=== PATIENT | male | born 1965 | race Caucasian/White ===

== ENCOUNTER 2017-04-14 06:03 | Inpatient (IN) | payer MEDICARE, OTHER ==
--- NOTE | ~2017-04-14 | DS ---
Discharge Summary [facility] [address] [place]. [address] NAME: VASQUEZ VASQUEZ : 65 STATUS : DIS Lou PAT#: [id number] AGE: 51 ADM/REG DATE : 04/14/17 MR#: [id number] REPORT SERV DATE: 04/21/17 DICTATED BY: DATE: REPORT STATUS : Draft TRANSCRIBED BY: MODL DATE: 04/16/17 ADMISSION DATE: 04/14/2017 DISCHARGE DATE: 04/16/2017 CONDITION AT DISCHARGE: Stable. PLANS FOR DISCHARGE: To home. DISCHARGE DIAGNOSES: 1. End-stage renal disease. 2. Noncompliance. 3. Hyperkalemia. 4. Hypertension. 5. Hyperlipidemia. 6. Chronic myoclonus. 7. Volume overload due to noncompliance. MEDICATIONS ON DISCHARGE: Amlodipine 10 mg daily, Sensipar 30 mg p.o. at bedtime, Flexeril 30 mg p.o. at bedtime, Colace 100 mg p.o. at bedtime, Lasix 40 mg p.o. at bedtime, Lyrica 75 mg p.o. b.i.d., Senokot two tablets p.o. at bedtime, sodium bicarb 1300 mg daily, Flomax 0.4 mg p.o. at bedtime, OxyContin 40 mg sustained release p.o. b.i.d., Percocet 10/325 p.o. q.4 h. p.r.n. for pain, ferric citrate 630 mg p.o. at bedtime. HOSPITAL COURSE: This patient presented to [facility] on 04/14/2017 with complaint of shortness of breath and notable hyperkalemia with potassium of 6.6. He stated that he was "just lazy" and did not attend his dialysis schedule. He normally dialyzes on a Friday, Friday, Friday at [facility] via left upper extremity AV fistula and had not been to dialysis per his usual schedule. There was noted previously a large pericardial effusion on 11/2016. He was admitted in favor of emergent dialysis due to his hyperkalemia, shortness of breath, and further evaluation with cardiac echo for evaluation of his previous effusion. Echo was undertaken on 04/15/2017, demonstrating systolic function and reduction at 38% compared to 40%-45%, 11/2016, unchanged concentric left ventricular hypertrophy, moderate circumferential pericardial effusion, unchanged from 01/17/2017 and 12/09/2016, and right ventricular systolic function mildly reduced. No available pulmonary pressures on report, which is reviewed during this summary. The patient is evaluated this morning prior to dialysis and is agreeable to exit to home after hemodialysis today. He has been dialyzed on entry date as well as 04/15/2017 with UF on 04/14 at 6.31, gross UF on 04/15 at 5.3, with additional UF to be undertaken today of 3-4 kilos. The patient will be discharged post hemodialysis today if he remains stable throughout dialysis treatment. He will resume medications as listed above and resume his usual Friday, Friday, Friday hemodialysis schedule at his previous clinic. No consultations were undertaken during this hospital stay. The patient has been advised of instructions on discharge and will be re-advised of those instructions as well as his home medication list on dismissal today. DICTATED BY: Vasquez Botello NP Discharge Summary [address] [address] NAME: VASQUEZ VASQUEZ : 65 STATUS : DIS Lou PAT#: [id number] AGE: 51 ADM/REG DATE : 04/14/17 MR#: [id number] REPORT SERV DATE: 04/21/17 DICTATED BY: DATE: REPORT STATUS : Draft TRANSCRIBED BY: CÉSAR DATE: 04/16/17 /CÉSAR Vasquez Botello NP / [id number] CC: Sherri Figueredo M.D.
--- NOTE | ~2017-04-14 | HP ---
History And Physical [facility] [address] [facility] [place]. [address] NAME: VASQUEZ FOSTER : 65 STATUS : ADM Lou PAT#: [id number] AGE: 51 ADM/REG DATE : 04/14/17 MR#: [id number] REPORT SERV DATE: 04/14/17 DICTATED BY: SCOTT GREER DATE: 04/14/17 REPORT STATUS : Draft TRANSCRIBED BY: MODL DATE: 04/14/17 DATE OF ADMISSION: 04/14/2017 INDICATION FOR ADMISSION: Volume overload, hyperkalemia, noncompliance with dialysis. HISTORY OF PRESENT ILLNESS: Mr. Foster is a 51-year-old male, who dialyzes Friday, Friday, Friday at [facility] by left AV fistula. He presented to the emergency room short of breath and was noted to have a potassium of 6.6. He missed his dialysis treatment on Friday, 04/11, stating that "I was just lazy." He denied any fever, chills, cough, or chest pain. He has noted some worsening of his myoclonus, which has been previously evaluated by Neurology. PAST MEDICAL HISTORY: 1. End-stage renal disease. Dialyzing Friday, Friday, Friday at [facility] by left upper extremity AV fistula. Noncompliance with dialysis. 2. Large pericardial effusion, 11/2016, with no intervention. 3. 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 4. Cervical myelomalacia involving C5-C6. 5. Type 2 diabetes mellitus. 6. Hypertension. 7. Hyperlipidemia. 8. Remote left renal angiomyolipoma, status post embolization. 9. Venous stasis disease of lower extremities. 10.Remote rhabdo. 11.History of obstructive uropathy. 12.Chronic myoclonus. PAST SURGICAL HISTORY: Left knee surgery, partial right foot amputation, appendectomy. FAMILY HISTORY: Positive for diabetes, hypertension, heart disease, and stroke. No history of cancer or end-stage renal disease. SOCIAL HISTORY: The patient is . Lives with son. Uses smokeless tobacco. No ongoing tobacco use. No alcohol use or illicit drugs. He works on machinery. MEDICATIONS: Norvasc, Coreg, Flexeril, Auryxia, Habitrol, Percocet, Lyrica, Senokot, Flomax. ALLERGIES: NONE KNOWN. REVIEW OF SYSTEMS: HEENT: No change in visual acuity. No epistaxis. No otic infection. No pharyngitis. PULMONARY: No shortness of breath. No cough or hemoptysis. CARDIAC: No chest pain. Has noted lower extremity edema. GI: No nausea, vomiting, or melena. : No gross hematuria or dysuria. Voids minimally. MUSCULOSKELETAL: Pain in back and knees. History And Physical [address] [place]. [address] NAME: VASQUEZ FOSTER : 65 STATUS : ADM Lou PAT#: [id number] AGE: 51 ADM/REG DATE : 04/14/17 MR#: [id number] REPORT SERV DATE: 04/14/17 DICTATED BY: SCOTT GREER DATE: 04/14/17 REPORT STATUS : Draft TRANSCRIBED BY: CÉSAR DATE: 04/14/17 INTEGUMENT: No rash. No itching. NEUROLOGIC: Chronic myoclonus. No seizure activity. No lateralizing weakness. PHYSICAL EXAMINATION: GENERAL: Morbidly obese white male, alert and cooperative. VITAL SIGNS: Blood pressure 145/86, temp 98.5, respiratory rate 20, pulse 91. HEENT: Eyes, no scleral icterus. Pupils equal and reactive to light. Extraocular movement intact. Nares patent, no discharge. Throat, no injection. Mucous membranes moist. NECK: No thyromegaly, masses, or bruits. CHEST/LUNGS: Late crackles laterally. Few scattered wheezes. CARDIAC: Regular rate and rhythm. No murmur, gallop, or rub. ABDOMEN: Obese. Normoactive bowel sounds. No organomegaly, tenderness, or rebound. /RECTAL: Not performed. EXTREMITIES: 1 to 2+ edema. No calf tenderness. DERMIS: No rash. No skin lesions. NEUROLOGIC: The patient with myoclonus. Cranial nerves appear intact. No lateralizing weakness. IMPRESSION: 1. End-stage renal disease, dialyzing Friday, Friday, Friday at [facility] by left upper extremity AV fistula. 2. Hyperkalemia, volume overload due to noncompliance with dialysis. 3. Pericardial effusion in 11/2016, we will monitor. 4. 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 5. Cervical myelomalacia involving C5-C6. 6. Type 2 diabetes mellitus. 7. Hypertension. 8. Dyslipidemia. 9. Remote left renal angiomyolipoma, status post embolization. 10.Lower extremity venous stasis disease. 11.Myoclonus. PLAN: 1. Urgent dialysis with UF. 2. Likely repeat dialysis on 04/15. 3. Repeat echo. 4. Assess oxygenation. CG/MODL Scott Greer M.D. / [id number] History And Physical [address] [address] NAME: VASQUEZ FOSTER : 65 STATUS : ADM Lou PAT#: [id number] AGE: 51 ADM/REG DATE : 04/14/17 MR#: [id number] REPORT SERV DATE: 04/14/17 DICTATED BY: SCOTT GREER DATE: 04/14/17 REPORT STATUS : Draft TRANSCRIBED BY: CÉSAR DATE: 04/14/17 CC: Sherri Figueredo M.D.
[2017-04-14 06:02] LABS: BASOPHILS 0.2 %; BASOPHILS ABSOLUTE 0.03 10/3/uL (0.0-0.16); EOSINOPHILS 0 %; IMMATURE GRANULOCYTES 0.4 %; IMMATURE GRANULOCYTES ABSOLUTE 0.05 10/3/uL (0.0-0.11); LYMPHOCYTES 8.1 %; LYMPHOCYTES ABSOLUTE 1.07 10/3/uL (0.67-4.30); MEAN CORPUSCULAR HEMOGLOB 28.4 pg (26.0-34.0); MEAN PLATELET VOLUME 10.9 fL (9.2-13.0); MONOCYTES ABSOLUTE 0.92 10/3/uL (0.21-1.20); NEUTROPHILS 84.3 %; NEUTROPHILS ABSOLUTE 11.06 10/3/uL (2.02-8.40); PLATELET COUNT 209 10/3/uL (150-400); RBC DISTRIBUTION WIDTH 13.9 % (12.0-16.0)
[~2017-04-14 06:03] MED LIST: APRES50 PO; AURYXIA210 MG PO; CELEXA20 PO; COREG3 PO; DSS PO; EFFEX75 PO; FLEX PO; FLOMAX4 PO; GLUCPH PO; HABIT14 TOP; HYDROCHLOROT12.5 MG PO; KLOR-CON M1010 MEQ PO; KLOR-CON M2020 MEQ PO; LISINOPRIL40 MG PO; LOFIB160 PO; LOPRESS HC100 MG/25 PO; LYRICA PO; LYRICA150 MG PO; LYRICA75 PO; NORV10 PO; NORV5 PO; OXYCON40 PO; PERCOCET 10/3251 TAB PO; PERCOCET1 TA2 PO; POTASSIUM PO; PRAVACHOL40 MG PO; ROXICODONE15 MG PO; SENTAB PO; SOMATAB PO; WELLXL150 PO; [UNRECOGNIZED DRUG - OTHER] OR
[2017-04-14 06:05] LABS: ER CBC TAT 0 Hrs 07 Mins; HEMATOCRIT 27.3 % (40.0-51.0); MANUAL DIFF NO %; MEAN CORPUSCULAR VOLUME 86.1 fL (80-100); RED CELL COUNT 3.17 10/6/uL (4.7-6.1); WHITE BLOOD CELLS 13.1 10/3/uL (4.5-10.5)
[2017-04-14 06:17] LABS: CHLORIDE, SERUM 97 MMOL/L (96-112); CO2 (CARBON DIOXIDE) 21 MMOL/L (24-34); GLUCOSE, SERUM 118 MG/DL (60-99); SODIUM, SERUM 132 MMOL/L (135-148)
[2017-04-14 06:20] LABS: BUN (BLOOD UREA NITROGEN) 117 MG/DL (6-23); CALCIUM, SERUM 7.8 MG/DL (8.5-10.4); GFR AFRICAN AMERICAN 4 ML/MIN (>=60); GFR NON AFRICAN AMERICAN 4 ML/MIN (>=60); POTASSIUM, SERUM 6.6 MMOL/L (3.5-5.3)
[2017-04-14 08:44] LABS: ALLENS TEST Pos; BE (BASE EXCESS) -3.6 MEQ/L (0 +/- 2.5); DEVICE NC; HCO3 (ACTUAL BICARBONATE) 22.6 MEQ/L (23-27); HEMOBLOGIN CONTENT 9.5 G/DL (14-18); INSTRUMENT SERIAL # 8083; METHEMOGLOBIN 0.3 % (0-3); O2 CONTENT 12.5 VOL% (18-24); PCO2 (CO2 TENSION) 46 MMHG (35-45); PO2 (O2 TENSION) 75 MMHG (79-93); SAMPLE Arterial; pH 7.31 (7.37-7.43)
[2017-04-14] MEDS ORDERED: NORV10 PO (13:50)
[2017-04-14] MEDS ORDERED: FLOMAX4 PO (13:50)
[2017-04-14] MEDS ORDERED: SENSIPAR30 MG PO (13:50)
[2017-04-14] MEDS ORDERED: LYRICA75 PO (13:51)
[2017-04-14] MEDS ORDERED: FLEX PO (13:51)
[2017-04-14] MEDS ORDERED: PERCOCET 10/3251 TAB PO (13:53)
[2017-04-14] MEDS ORDERED: D.O.S.100 MG PO (13:53)
[2017-04-14] MEDS ORDERED: SENTAB PO (13:53)
[2017-04-14] MEDS ORDERED: SODBICAR10 PO (13:53)
[2017-04-14] MEDS ORDERED: AURYXIA210 MG PO (13:54)
[2017-04-14] MEDS ORDERED: L40 PO (13:54)
[2017-04-14] MEDS ORDERED: OXYCON40 PO (13:55)
[2017-04-15 07:03] LABS: BASOPHILS 0.5 %; BASOPHILS ABSOLUTE 0.05 10/3/uL (0.0-0.16); EOSINOPHILS 1.9 %; EOSINOPHILS ABSOLUTE 0.19 10/3/uL (0.0-0.53); HEMATOCRIT 26.4 % (40.0-51.0); HEMOGLOBIN 8.5 g/dL (13.6-17.8); IMMATURE GRANULOCYTES 0.4 %; IMMATURE GRANULOCYTES ABSOLUTE 0.04 10/3/uL (0.0-0.11); LYMPHOCYTES 20.2 %; LYMPHOCYTES ABSOLUTE 2.02 10/3/uL (0.67-4.30); MEAN CORPUS HGB CONC 32.2 g/dL (32.0-36.0); MEAN CORPUSCULAR HEMOGLOB 27.8 pg (26.0-34.0); MEAN CORPUSCULAR VOLUME 86.3 fL (80-100); MEAN PLATELET VOLUME 11.2 fL (9.2-13.0); MONOCYTES 9.3 %; MONOCYTES ABSOLUTE 0.93 10/3/uL (0.21-1.20); NEUTROPHILS 67.7 %; NEUTROPHILS ABSOLUTE 6.78 10/3/uL (2.02-8.40); PLATELET COUNT 206 10/3/uL (150-400); RED CELL COUNT 3.06 10/6/uL (4.7-6.1)
[2017-04-15 07:07] LABS: MANUAL DIFF NO %
[2017-04-15 07:26] LABS: ALBUMIN 3.1 G/DL (3.5-5.0); BUN (BLOOD UREA NITROGEN) 72 MG/DL (6-23); CALCIUM, SERUM 7.6 MG/DL (8.5-10.4); CHLORIDE, SERUM 101 MMOL/L (96-112); CO2 (CARBON DIOXIDE) 27 MMOL/L (24-34); CREATININE 9.65 MG/DL (0.70-1.30); GFR AFRICAN AMERICAN 6 ML/MIN (>=60); GFR NON AFRICAN AMERICAN 6 ML/MIN (>=60); GLUCOSE, SERUM 91 MG/DL (60-99); PHOSPHORUS, SERUM 5.9 MG/DL (2.5-4.5); POTASSIUM, SERUM 5.1 MMOL/L (3.5-5.3); SODIUM, SERUM 135 MMOL/L (135-148)
[2017-04-16 06:17] LABS: BASOPHILS 0.9 %; BASOPHILS ABSOLUTE 0.09 10/3/uL (0.0-0.16); EOSINOPHILS 2.8 %; EOSINOPHILS ABSOLUTE 0.28 10/3/uL (0.0-0.53); HEMATOCRIT 29.9 % (40.0-51.0); HEMOGLOBIN 9.7 g/dL (13.6-17.8); IMMATURE GRANULOCYTES 0.7 %; IMMATURE GRANULOCYTES ABSOLUTE 0.07 10/3/uL (0.0-0.11); LYMPHOCYTES 19.8 %; LYMPHOCYTES ABSOLUTE 1.96 10/3/uL (0.67-4.30); MANUAL DIFF NO %; MEAN CORPUS HGB CONC 32.4 g/dL (32.0-36.0); MEAN CORPUSCULAR HEMOGLOB 28.2 pg (26.0-34.0); MEAN CORPUSCULAR VOLUME 86.9 fL (80-100); MEAN PLATELET VOLUME 11.1 fL (9.2-13.0); MONOCYTES 8.6 %; MONOCYTES ABSOLUTE 0.85 10/3/uL (0.21-1.20); NEUTROPHILS 67.2 %; NEUTROPHILS ABSOLUTE 6.66 10/3/uL (2.02-8.40); PLATELET COUNT 253 10/3/uL (150-400); RED CELL COUNT 3.44 10/6/uL (4.7-6.1); WHITE BLOOD CELLS 9.9 10/3/uL (4.5-10.5)
[2017-04-16 06:27] LABS: ALBUMIN 3.3 G/DL (3.5-5.0); BUN (BLOOD UREA NITROGEN) 62 MG/DL (6-23); CALCIUM, SERUM 8.2 MG/DL (8.5-10.4); CHLORIDE, SERUM 99 MMOL/L (96-112); CO2 (CARBON DIOXIDE) 28 MMOL/L (24-34); CREATININE 7.87 MG/DL (0.70-1.30); GFR AFRICAN AMERICAN 8 ML/MIN (>=60); GFR NON AFRICAN AMERICAN 7 ML/MIN (>=60); GLUCOSE, SERUM 132 MG/DL (60-99); PHOSPHORUS, SERUM 4.7 MG/DL (2.5-4.5); POTASSIUM, SERUM 4.6 MMOL/L (3.5-5.3); SODIUM, SERUM 136 MMOL/L (135-148)
== END 2017-04-16 18:35 | disposition home or self-care (01) | DRG 640 ==
LOC: ER 06:03 → 2SO 12:30
PROVIDERS: Internal Medicine Nephrology; Specialist
PROC: 5A1D60Z (ICD-10-PCS; principal; 2017-04-14)
DX: E87.70 Fluid overload, unspecified (principal); G93.49 Other encephalopathy; I12.0 Hypertensive chronic kidney disease with stage 5 chronic kidney disease or end stage renal disease; I31.3 Pericardial effusion (noninflammatory); N18.6 End stage renal disease; E11.22 Type 2 diabetes mellitus with diabetic chronic kidney disease; E87.5 Hyperkalemia; F17.220 Nicotine dependence, chewing tobacco, uncomplicated; I87.8 Other specified disorders of veins; E66.01 Morbid (severe) obesity due to excess calories; E78.5 Hyperlipidemia, unspecified; G25.3 Myoclonus; N13.9 Obstructive and reflux uropathy, unspecified; Z91.15 Patient's noncompliance with renal dialysis; Z99.2 Dependence on renal dialysis; Z98.890 Other specified postprocedural states; Z89.431 Acquired absence of right foot; Z82.49 Family history of ischemic heart disease and other diseases of the circulatory system; Z83.3 Family history of diabetes mellitus; Z82.3 Family history of stroke
CPT/HCPCS: 36600; 71010; 80048; 80069; 82805; 82962; 83735; 83880; 85025; 93005; 93306; 94640; 99291; A9270-GY; G0257; J0360; J0610; P9047